=== PATIENT | female | born 1960 | race Caucasian/White ===

== ENCOUNTER → 2017-01-16 | Outpatient (CLI) | payer OTHER ==
[~2017-01-16] MED LIST: CALC-823 PO; CLCX100C PO; ESTR1TAB21 PO; FEXO1TAB49 PO; FLT05NA16 NS; HYDR-3714 PO; LEVO137T24 PO; METH500T7 PO; MULT-35 PO; ROPI1TAB2 PO
--- OUTSIDE RECORDS SUMMARY | 2017-01-16 10:52 | XMS REPORT | Continuity of Care Document ---
Author Author [facility] Organization [facility] Address Unknown Phone Unavailable Care Team Providers Care [place] Supervisor Name Role Phone Cedric Soni PCP [phone] Source Comments Some departments are not documenting in the electronic medical record. If you do not see the information that you expected, contact Release of Information in the Health Information Management department at [phone] for further assistance in locating additional records.[facility] Active Allergies and Adverse Reactions No Known Allergies Current Medications Prescription Sig. Disp. Refills Start End Date Status Date levothyroxine (SYNTHROID) Take 137 mcg by mouth Active 137 mcg tablet daily. montelukast (SINGULAIR) Take 10 mg by mouth at Active 10 mg tablet bedtime daily. estradiol/norethindrone Take 1 Tab by mouth Active acet(+) (ACTIVELLA) 1/0.5 daily. mg tablet fexofenadine-pseudoephedr Take 1 Tab by mouth Active ine (RAN-D 12 HOUR) daily. 60-120 mg tablet calcium carbonate Take 2 Tabs by mouth Active (CALCIUM 500) 500 mg daily. calcium (1,250 mg) chewable tablet traMADol (ULTRAM) 50 mg Take 50 mg by mouth every Active tablet 6 hours as needed. other medication 1 Dose daily as needed. Active Raspberry ketone 1 as needed. fluticasone (FLONASE) 50 Apply 2 Sprays to each Active mcg/actuation nasal spray nostril as directed at bedtime daily. celecoxib (CELEBREX) 200 Take 200 mg by mouth Active mg capsule daily as needed. methocarbamol (ROBAXIN) Take 750-1,500 mg by Active 750 mg tablet mouth three times daily as needed. Active Problems Not on file Social History Tobacco Use Types Packs/Day Years Used Date Never Assessed Smokeless Tobacco: Never Used Alcohol Use Drinks/Week oz/Week Comments Yes 2 Glasses of 2.2 wine 2 Standard drinks or equivalent Last Filed Vital Signs Vital Sign Reading Time Taken Blood Pressure 123/60 03/03/2013 1:15 PM CDT Pulse 67 03/03/2013 1:15 PM CDT Temperature 36.4 C (97.5 F) 03/03/2013 11:23 AM CDT Respiratory Rate - - Height 1.651 m (5' 5") 02/23/2013 2:00 PM CDT Weight 79.833 kg (176 lb) 02/23/2013 2:00 PM CDT Body Mass Index 29.29 02/23/2013 2:00 PM CDT Oxygen Saturation 98% 03/03/2013 1:15 PM CDT Plan of Care Health Maintenance Due Date Last Done Comments Physical (Comprehensive) 1965 Exam Pertussis Vaccine 1969 Tetanus Vaccine 1975 Cervical Cancer Screening 1979 Breast Cancer Screening 1998 Colorectal Cancer 2008 Screening Influenza Vaccine 07/25/2016 Results from Last 3 Months Not on file
--- NOTE | 2017-01-16 12:48 | Diagnostic Imaging Report ---
INDICATION: Postmenopausal, screening for osteoporosis. COMPARISON: 03/10/2014. DISCUSSION: Bone mineral density measurements of the lumbar spine and bilateral hips were performed on a [employer] DEXA scanner. Bone mineral density of the lumbar spine, L2-L4, measures 1.410 g per centimeter squared which correlates to a T score of 1.8, normal. No statistically significant interval change in bone mineral density measurements of the lumbar spine. Bone mineral density of the average bilateral hips is 1.119 g per centimeter squared which correlates to a T score of 0.9, normal. No statistically significant interval change in bone mineral density measurements of the bilateral hips. This scan is considered normal according to World Health Organization guidelines. IMPRESSION: 1. Normal bone mineralization. 2. No statistically significant interval change in bone mineral density measurements of the lumbar spine or bilateral hips. Dictated by: Dictated on workstation # [id number]
== END ==
LOC: RAD 10:49
PROVIDERS: ATTEND Physician Assistant
DX: M81.0 Age-related osteoporosis without current pathological fracture (principal)
CPT/HCPCS: 77080

== ENCOUNTER → 2017-01-24 | Outpatient (CLI) | payer OTHER ==
--- OUTSIDE RECORDS SUMMARY | 2017-01-24 11:36 | XMS REPORT | Continuity of Care Document ---
Author Author [facility] Organization [facility] Address Unknown Phone Unavailable Care Team Providers Care Supervisor [place] Name Role Phone Cedric Soni PCP [phone] Source Comments Some departments are not documenting in the electronic medical record. If you do not see the information that you expected, contact Release of Information in the Health Information Management department at [phone] for further assistance in locating additional records.[facility] Active Allergies and Adverse Reactions No [...]
--- NOTE | 2017-01-24 12:23 | Diagnostic Imaging Report ---
PROCEDURE: CT sinuses without contrast TECHNIQUE: Multiple contiguous axial images were obtained through the sinuses without the use of intravenous contrast. Coronal and sagittal reformations were then performed. INDICATION: Headache and facial pain with swelling. 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 There is mild rightward bowing of the nasal septum. Middle turbinates have been resected as well. There is however complete opacification of both frontal sinuses as well as anterior ethmoid air cells, greater on the left. There is enlargement of the anterior ethmoid air cell on the left with thinning of the associated lamina papyracea with bowing into the left orbit. There is no evidence of orbital fat, edema, or retrobulbar fluid collection. Globes are otherwise intact. IMPRESSION: Findings are compatible with extensive chronic bilateral frontal sinus disease with involvement of anterior ethmoid air cells. Expansion and cortical thinning of the left anterior ethmoid air cell may indicate possible mucocele. This bows into the left orbit without evidence of orbital fat inflammation. Dictated by: Dictated on workstation # [id number]
== END ==
LOC: RAD 11:33
PROVIDERS: ATTEND Otolaryngology Otolaryngology/Facial Plastic Surgery
DX: J01.90 Acute sinusitis, unspecified (principal)
CPT/HCPCS: 70486

== ENCOUNTER → 2017-02-14 | Outpatient (CLI) | payer OTHER ==
--- NOTE | 2017-02-14 16:53 | Diagnostic Imaging Report ---
EXAMINATION: Bilateral breast digital diagnostic mammogram with CAD. The current study was also evaluated with a Computer Aided Detection (CAD) system. INDICATION: Followup calcifications in the posterior slightly medial aspect of the left breast. COMPARISON: 08/19/2016. FINDINGS: The breasts are composed of heterogeneously dense parenchyma which may decrease mammographic sensitivity. Along the posterior slightly medial aspect of the left breast there are punctate calcifications with slight clustering seen. There is an adjacent curvilinear structure which may suggest vascular etiology of the calcifications. The calcifications appear minimally more prominent compared to prior exams. The right breast demonstrates benign-appearing calcifications and no developing mass. IMPRESSION: Minimally more prominent cluster of calcifications in the medial posterior aspect of the left breast that are still very subtle. These could be vascular. Six-month followup left breast mammogram is recommended for continued close observation. ACR BI-RADS Category 3: Probably benign findings. Result letter will be mailed to the patient. Note: At least 10% of breast cancer is not imaged by mammography. Dictated by: Dictated on workstation # [id number]
== END ==
LOC: RAD 08:44
PROVIDERS: ATTEND Obstetrics & Gynecology
DX: R92.8 Other abnormal and inconclusive findings on diagnostic imaging of breast (principal)
CPT/HCPCS: 77066

== ENCOUNTER → 2017-10-22 | Outpatient (CLI) | payer OTHER ==
--- NOTE | 2017-10-22 11:34 | Diagnostic Imaging Report ---
PROCEDURE: MRI lumbar spine. TECHNIQUE: Multiplanar, multisequence MRI of the lumbar spine was performed without contrast. INDICATION: History of arachnoiditis. COMPARISON: 04/24/2016 FINDINGS: Overall, there has been little significant interval change from the prior study. BONE MARROW: Unremarkable CONUS MEDULLARIS: Normal. There is some clumping of the distal roots which appears similar to the prior study. L5-S1: There is degenerative disc disease with disc space narrowing and loss of signal. There is mild broad-based posterior protrusion. There is spondylolysis with minimal grade I anterolisthesis similar to the prior study. There is mild facet arthropathy. There is minimal to mild foraminal narrowing bilaterally. L4-5: There is degenerative disc disease with disc space narrowing and loss of signal. There is broad-based posterior disc protrusion and mild facet arthropathy. Mild to moderate left foraminal narrowing appears similar to the prior study. L3-4: There is moderate anterolisthesis with degenerative disc disease. There is broad-based posterior disc protrusion and fairly severe facet arthropathy resulting in mild central narrowing, similar to the prior study. There is mild bilateral foraminal narrowing as well. L2-3: There is degenerative disc disease with disc space narrowing and loss of signal. There is moderate facet hypertrophic change. There is minimal annular bulge without significant central or foraminal narrowing. L1-2: Minimal facet arthropathy. ADDITIONAL FINDINGS: None IMPRESSION: 1. Multilevel degenerative disc disease and facet arthropathy with multiple levels of foraminal narrowing. There is some central narrowing at the L3/L4 level. The appearance overall appears similar to the prior exam. Please see above for detailed discussion by level. 2. Some clumping of the distal sacral nerve roots appears similar to the prior study. Dictated by: Dictated on workstation # [id number]
== END ==
LOC: RAD 09:30
PROVIDERS: ATTEND Obstetrics & Gynecology
DX: M48.061 Spinal stenosis, lumbar region without neurogenic claudication (principal); M51.36 Other intervertebral disc degeneration, lumbar region; M46.96 Unspecified inflammatory spondylopathy, lumbar region
CPT/HCPCS: 72148

== ENCOUNTER → 2018-02-27 | Outpatient (CLI) | payer BC, OTHER ==
--- NOTE | 2018-02-27 14:26 | Diagnostic Imaging Report ---
EXAMINATION: Digital mammogram bilateral screening. INDICATION: Screening. COMPARISON: This study was compared to the prior exam of 09/29/2017, 02/14/2017, 08/19/2016, and 01/24/2016. At this time, there are no current complaints. The current study was also evaluated with a Computer Aided Detection (CAD) system. FINDINGS: The fibroglandular tissue in both breasts is heterogeneously dense. This does limit the sensitivity of this exam. The previous study did show benign-appearing calcifications in the medial aspect of the left breast. Those calcifications do not seem to have changed significantly. I do suspect that they are benign. The overall appearance of the breasts is stable as well. There is no primary or secondary sign of malignancy identified. IMPRESSION: There is no evidence of malignancy. ACR BI-RADS Category 1: Negative. Result letter will be mailed to the patient. Note: At least 10% of breast cancer is not imaged by mammography. Dictated by: Dictated on workstation # [id number]
== END ==
LOC: RAD 09:38
PROVIDERS: ATTEND Obstetrics & Gynecology
DX: Z12.31 Encounter for screening mammogram for malignant neoplasm of breast (principal)
CPT/HCPCS: 77067

== ENCOUNTER → 2018-07-09 | Outpatient (CLI) | payer BC ==
--- NOTE | 2018-07-09 12:00 | Diagnostic Imaging Report ---
Indication: Neuropathy. Comparison is made with prior study 01/16/2017. Bone mineral analysis of the lumbar spine and both hips was performed. Bone mineral density of the lumbar spine L2-L4 is 1.340 with a T score of 1.2. This compares with 1.410 and 1.8 on prior. Bone mineral density left femoral neck 1.015 with T score -0.2. This compares with 1.044 and 0.0. Bone mineral density right femoral neck is 0.949 with T score -0.6. This compares with 0.981 and -0.4. Impression: Continued normal bone mineral density of the lumbar spine and bilateral hips. Dictated by: Dictated on workstation # [id number]
== END ==
LOC: RAD 08:56
PROVIDERS: ATTEND Anesthesiology Pain Medicine
DX: G62.9 Polyneuropathy, unspecified (principal)
CPT/HCPCS: 77080

== ENCOUNTER → 2019-03-26 | Outpatient (CLI) | payer BC ==
--- NOTE | 2019-03-29 12:35 | Diagnostic Imaging Report ---
INDICATION: Routine screening. COMPARISON: 02/27/2018 and 02/14/2017. TECHNIQUE: 2D and 3D bilateral screening mammography was performed with CAD. FINDINGS: Both breasts are heterogeneously dense, limiting the sensitivity of mammography. The intramammary lymph node in the upper-outer left breast is stable. No new mass or malignant-appearing microcalcifications are seen. There are benign calcifications bilaterally. The axillae are unremarkable. IMPRESSION: No mammographic features suspicious for malignancy are identified. ACR BI-RADS Category 2: Benign findings. Result letter will be mailed to the patient. Note: At least 10% of breast cancer is not imaged by mammography. Dictated by: Dictated on workstation # [id number]
== END ==
LOC: RAD 11:34
PROVIDERS: ATTEND Obstetrics & Gynecology
DX: Z12.31 Encounter for screening mammogram for malignant neoplasm of breast (principal)
CPT/HCPCS: 77067

== ENCOUNTER → 2020-01-24 | Outpatient (CLI) | payer BC ==
--- NOTE | 2020-01-24 16:00 | Diagnostic Imaging Report ---
PROCEDURE: MRI lumbar spine. TECHNIQUE: Multiplanar, multisequence MRI of the lumbar spine was performed without contrast. INDICATION: Chronic low back pain. History of surgery. COMPARISON: 10/22/2017 FINDINGS: The last well-formed disc space will be labeled L5-S1 for the purposes of this examination. There is grade I anterolisthesis at L3-L4 which is stable since the prior study. Vertebral body heights are preserved. No acute fracture is seen. There is disc height loss and decreased T2 signal at multiple levels, most notable at L2-L3, L3-L4, and L5-S1. The soft tissues about the lumbar spine are otherwise unremarkable. T12-L1: No significant disc bulge. No spinal canal or foraminal stenosis. L1-L2: Mild disc bulge with facet arthropathy. No spinal canal stenosis. Mild right foraminal stenosis. No left foraminal stenosis. L2-L3: Diffuse disc bulge with facet arthropathy and ligamentous infolding. Minimal spinal canal narrowing. Mild bilateral foraminal narrowing. L3-L4: Anterolisthesis. Right paracentral disc extrusion extending superiorly, superimposed on a diffuse disc bulge. Facet arthropathy. Effacement of the lateral recesses with moderate spinal canal stenosis. Moderate bilateral foraminal stenosis. L4-L5: Diffuse disc bulge. Small central disc protrusion extending inferiorly. Facet arthropathy. No spinal canal stenosis. Mild right and moderate left foraminal stenosis. L5-S1: Diffuse disc bulge with facet arthropathy. No spinal canal stenosis. Moderate bilateral foraminal stenosis. Overall findings appear mildly progressed compared to 2017. IMPRESSION: 1. Multilevel degenerative disc disease, as described above. Moderate spinal canal stenosis at L3-L4. Multilevel moderate foraminal stenosis. Dictated by: Dictated on workstation # [id number]
== END ==
LOC: RAD 15:17
PROVIDERS: ATTEND Nurse Practitioner Family
DX: Q07.9 Congenital malformation of nervous system, unspecified (principal); G89.29 Other chronic pain; E66.01 Morbid (severe) obesity due to excess calories; M51.27 Other intervertebral disc displacement, lumbosacral region; M48.07 Spinal stenosis, lumbosacral region; M51.36 Other intervertebral disc degeneration, lumbar region; M43.16 Spondylolisthesis, lumbar region
CPT/HCPCS: 72148

== ENCOUNTER → 2020-01-25 | Outpatient (CLI) | payer BC ==
--- NOTE | 2020-01-25 16:38 | Diagnostic Imaging Report ---
PROCEDURE: MRI right joint lower extremity without contrast. TECHNIQUE: Multiplanar, multisequence non contrast-enhanced MRI of the right lower extremity was accomplished. INDICATION: Right knee pain. COMPARISON: There are no prior studies available for comparison. FINDINGS: The sagittal proton-dense fat-saturated series reveals that there is an area of abnormal signal involving the posterior horn of the medial meniscus. This would be consistent with a tear. The inferior articular surface of the posterior horn and the midportion of the medial meniscus are also somewhat indistinct and I suspect that they are torn as well. The lateral meniscus is intact. The sagittal proton-dense fat-saturated series also shows that the anterior cruciate ligament is indistinct. I suspect the ACL is at least partially if not completely torn. The posterior cruciate ligament, the quadriceps and the infrapatellar tendons, the collateral ligaments, the biceps femoris tendon, and the iliotibial band are intact. There is no abnormal signal arising from the osseous structures to suggest bone edema or fracture. There is mild degenerative disease of the medial compartment of the knee joint and of the lateral aspect of the patellofemoral space. Chondromalacia patella, grade 1, is also seen. The lateral compartment is fairly well maintained. There is a small joint effusion present. There is no evidence for a Bartlett's cyst. IMPRESSION: 1. The midportion and the posterior horn of the medial meniscus are torn. The lateral meniscus is intact. 2. The indistinct appearance of the anterior cruciate ligament indicates that the ACL is at least partially if not completely torn. 3. The other major ligaments and tendons are intact. 4. There is no sign of an acute bony injury. 5. There is a small joint effusion present. Dictated by: Dictated on workstation # [id number]
== END ==
LOC: RAD 15:18
PROVIDERS: ATTEND Nurse Practitioner Family
DX: M23.221 Derangement of posterior horn of medial meniscus due to old tear or injury, right knee (principal); Q07.9 Congenital malformation of nervous system, unspecified; E66.09 Other obesity due to excess calories; M54.16 Radiculopathy, lumbar region
CPT/HCPCS: 73721

== ENCOUNTER 2020-04-25 13:12 | Outpatient (RCR) | payer BC | END 2020-04-27 | disposition home or self-care (01) | PROVIDERS: ATTEND Nurse Practitioner Family | DX: S83.511A Sprain of anterior cruciate ligament of right knee, initial encounter (principal); M54.16 Radiculopathy, lumbar region; X58.XXXA Exposure to other specified factors, initial encounter ==

== ENCOUNTER → 2020-07-14 | Outpatient (CLI) | payer BC ==
--- NOTE | 2020-07-14 12:53 | Diagnostic Imaging Report ---
INDICATION: Routine screening. Comparison is made with prior mammogram 03/26/2019 and 02/27/2018. 2-D and 3-D bilateral screening mammography was performed with CAD. Both breasts are heterogeneously dense, limiting the sensitivity of mammography. Benign nodule outer left breast is stable. No new mass or malignant-appearing microcalcifications are identified. Axillae are unremarkable. IMPRESSION: BI-RADS Category 2 No mammographic features suspicious for malignancy are identified. ACR BI-RADS Category 2: Benign findings. Result letter will be mailed to the patient. Note: At least 10% of breast cancer is not imaged by mammography. Dictated by: Dictated on workstation # [id number]
== END ==
LOC: RAD 11:00
PROVIDERS: ATTEND Obstetrics & Gynecology
DX: Z12.31 Encounter for screening mammogram for malignant neoplasm of breast (principal)
CPT/HCPCS: 77063; 77067

== ENCOUNTER 2020-07-26 13:53 | Outpatient (RCR) | payer BC | END 2020-07-31 | disposition home or self-care (01) | PROVIDERS: ATTEND Nurse Practitioner Family | DX: S83.511A Sprain of anterior cruciate ligament of right knee, initial encounter (principal); M54.16 Radiculopathy, lumbar region; T78.40XA Allergy, unspecified, initial encounter; Z87.828 Personal history of other (healed) physical injury and trauma; Z90.710 Acquired absence of both cervix and uterus; Z87.81 Personal history of (healed) traumatic fracture ==

== ENCOUNTER 2020-10-05 13:07 | Outpatient (RCR) | payer BC | END 2020-11-23 | disposition home or self-care (01) | PROVIDERS: ATTEND Nurse Practitioner Family | DX: S83.511A Sprain of anterior cruciate ligament of right knee, initial encounter (principal); M54.16 Radiculopathy, lumbar region; Z87.828 Personal history of other (healed) physical injury and trauma; Z90.710 Acquired absence of both cervix and uterus; Z87.81 Personal history of (healed) traumatic fracture ==

== ENCOUNTER 2021-06-01 13:03 | Outpatient (RCR) | payer BC | END 2021-06-13 | disposition home or self-care (01) | PROVIDERS: ATTEND Family Medicine | DX: S43.409D Unspecified sprain of unspecified shoulder joint, subsequent encounter (principal); M75.21 Bicipital tendinitis, right shoulder; Q07.9 Congenital malformation of nervous system, unspecified; M54.5 Low back pain; G89.29 Other chronic pain; E66.09 Other obesity due to excess calories; M25.561 Pain in right knee; Z79.899 Other long term (current) drug therapy ==

== ENCOUNTER → 2021-06-11 | Outpatient (CLI) | payer BC ==
--- NOTE | 2021-06-11 16:16 | Diagnostic Imaging Report ---
EXAMINATION: Magnetic resonance imaging of the right shoulder without contrast. DATE: June 11, 2021. COMPARISON: None. HISTORY: 61-year-old female, right shoulder pain. TECHNIQUE: Magnetic Resonance Imaging sequences were performed of the shoulder without contrast. FINDINGS: ROTATOR CUFF, LIGAMENTS, TENDONS, AND MUSCLES: There is supraspinatus tendinopathy. There is a 4 mm wide near full thickness articular sided tear of the anterior aspect of the supraspinatus and a more posteriorly located 6 mm tear near the supraspinatus infraspinatus junction which appears to be a 50% partial thickness articular sided tear. The more posterior aspects of the infraspinatus tendon are intact. The teres minor tendon is intact. There is subscapularis tendinopathy. There is normal rotator cuff muscle bulk and signal. LONG HEAD OF BICEPS: The biceps labral attachment and long head of the biceps tendon is intact. The long head of the biceps tendon is normally positioned within the bicipital groove. GLENOHUMERAL JOINT: The humeral head is well positioned relative to the glenoid. The anterior and posterior labrum are grossly intact. There is limited evaluation of the superior labrum on non-arthrogram evaluation. There is no identified paralabral cyst. The articular cartilage is grossly intact. There is no joint effusion. ACROMIOCLAVICULAR JOINT: The acromioclavicular joint is normally aligned. The coracoclavicular and coracoacromial ligaments are intact. There are very mild acromioclavicular degenerative changes without undersurface osteophyte. BONE: The bones all have normal configuration. The bone marrow signal is within normal limits. Specifically, negative for fracture, osteomyelitis, osteonecrosis, or marrow replacing process. BURSAE AND SOFT TISSUES: The bursae and soft tissue surrounding the shoulder are unremarkable. IMPRESSION: 1. Partial width tears involving the supraspinatus tendon and supraspinatus infraspinatus junction with the more posteriorly located tear being near full-thickness. No tendon retraction or muscle atrophy. Subscapularis tendinopathy. 2. Intact proximal long head of the biceps tendon. 3. Very mild acromioclavicular degenerative changes without undersurface osteophyte. 4. No acute fracture, bone contusion, or evidence of osteonecrosis. Dictated by: Dictated on workstation # [id number]
== END ==
LOC: RAD 13:08
PROVIDERS: ATTEND Family Medicine
DX: S46.811A Strain of other muscles, fascia and tendons at shoulder and upper arm level, right arm, initial encounter (principal); M19.011 Primary osteoarthritis, right shoulder
CPT/HCPCS: 73221

== ENCOUNTER → 2021-07-06 | Outpatient (CLI) | payer BC | LOC: LABNPT 05:58 | PROVIDERS: ATTEND Orthopaedic Surgery | DX: Z01.812 Encounter for preprocedural laboratory examination (principal); Z20.822 Contact with and (suspected) exposure to COVID-19 | CPT/HCPCS: 87635 ==

== ENCOUNTER 2021-07-20 11:47 | Outpatient (CLI) | payer BC ==
[~2021-07-20] VITALS: Ht 165.1 cm; Wt 71.2 kg
[2021-07-20 11:32] VITALS: BP 152/78
[2021-07-20] MEDS ORDERED: ACETAMINOPHEN 500 MG TAB (TYLENOL) PO PRN (12:00)
[2021-07-20] MEDS ORDERED: CASIRIVIMAB/IMDEVIMAB 1,200 MG in NS (IVPB) 250 ML IV ONE (12:00)
[2021-07-20] MEDS ORDERED: ONDANSETRON 4 MG/2 ML (SDV) Z0FRAN IV PRN (12:00)
[2021-07-20] MEDS ORDERED: diphenhydrAMINE 50 MG/ML INJ (BENADRYL) IV PRN (12:00)
[2021-07-20] MEDS ORDERED: EPINEPHrine INJECTION 1 MG/ML AMP IM PRN (12:00)
[2021-07-20 12:59] VITALS: BP_SYST 126; BP_SYST 146; BP_DIAS 86; BP_DIAS 89
== END 2021-07-20 13:35 | disposition home or self-care (01) ==
LOC: INFUSION 11:47
PROVIDERS: ATTEND Physician Assistant
DX: Z23 Encounter for immunization (principal); U07.1 COVID-19

== ENCOUNTER → 2021-10-03 | Outpatient (CLI) | payer BC ==
--- NOTE | 2021-10-03 17:16 | Diagnostic Imaging Report ---
INDICATION: Fell one week ago. Pain in the middle finger region. EXAMINATION: Left hand 10/03/2021 FINDINGS: 3 views of the hand. There are no fractures or dislocations. Joint spaces preserved. Soft tissues unremarkable. IMPRESSION: 1. No acute osseous abnormality. Dictated on workstation # [id number]
== END ==
LOC: RAD 14:24
PROVIDERS: ATTEND Family Medicine
DX: S43.402D Unspecified sprain of left shoulder joint, subsequent encounter (principal); M75.21 Bicipital tendinitis, right shoulder; Q07.9 Congenital malformation of nervous system, unspecified; M54.50 Low back pain, unspecified; G89.29 Other chronic pain; E66.09 Other obesity due to excess calories; M25.561 Pain in right knee; Z79.899 Other long term (current) drug therapy; W18.39XD Other fall on same level, subsequent encounter
CPT/HCPCS: 73130

== ENCOUNTER → 2021-11-08 | Outpatient (CLI) | payer BC ==
--- NOTE | 2021-11-09 10:06 | Diagnostic Imaging Report ---
INDICATION: Routine screening. Comparison is made with prior mammogram 07/14/2020 and 03/26/2019. 2-D and 3-D bilateral screening mammography was performed with CAD. Both breasts are heterogeneously dense, limiting the sensitivity of mammography. Benign nodule in the outer left breast is stable. A benign nodule in the far posterior right breast appears stable. No spiculated mass or malignant-appearing microcalcifications are seen. Axillae are unremarkable. IMPRESSION: BI-RADS Category 2 No mammographic features suspicious for malignancy are identified. ACR BI-RADS Category 2: Benign findings. Result letter will be mailed to the patient. Note: At least 10% of breast cancer is not imaged by mammography. Dictated by: Dictated on workstation # [id number]
== END ==
LOC: RAD 15:37
PROVIDERS: ATTEND Obstetrics & Gynecology
DX: Z12.31 Encounter for screening mammogram for malignant neoplasm of breast (principal)
CPT/HCPCS: 77063; 77067

== ENCOUNTER → 2021-11-12 | Outpatient (CLI) | payer BC ==
--- NOTE | 2021-11-12 11:04 | Diagnostic Imaging Report ---
CLINICAL INDICATION: Patient has neck pain with right arm radiculopathy. Exam: MRI of the cervical spine performed without IV contrast. Sequences include sagittal T1, sagittal T2, sagittal stir, axial gradient echo sequence, and axial T2. Comparison: MRI of the cervical spine without contrast dated 09/30/2013. Findings: There is no acute cervical spine fracture or dislocation. There is no significant abnormal cervical vertebral body signal. Limited visualization of posterior fossa is unremarkable. There are areas of slight tortuosity of the cervical cord due to cervical spine degenerative disease. Cervical spine cord has no abnormal signal. There is no significant paraspinal soft tissue abnormality. Stable reversal of the cervical lordosis centered at the C5-C6 level. There are degenerative spurs and facet arthropathy. C1-C2: There are degenerative spurs involving the atlantoodontoid interval anteriorly. There is no significant central canal narrowing. C2-C3: There is moderate left facet arthropathy and mild right facet arthropathy which has progressed. There is no significant central spinal canal or neural foramen narrowing. C3-C4: There is moderate left facet arthropathy and mild right facet arthropathy again noted. There is ligament flavum buckling which has slightly progressed. There is mild central canal stenosis and no significant neural foramen narrowing which is not significantly changed. C4-C5: There are diffuse disk bulges with increased size of the right uncinate spurs. There is moderate loss of disk space height. There is moderate right neural foramen narrowing which has progressed. There is no significant left neural foramen narrowing. There is moderate central canal stenosis which has minimally progressed. C5-C6: Again seen diffuse disk bulge and moderate loss of disk space height. Stable moderate left neural foramen narrowing and mild right neural foramen narrowing. There is stable moderate central canal stenosis. C6-C7: There is a diffuse disk bulge with moderate loss of disk space height with mild central canal stenosis. There is mild to moderate right neural foramen narrowing and moderate left neural foramen narrowing which has minimally progressed. C7-T1: There is interval development of a small disk extrusion/herniation in the right subarticular region causing moderate right neural foramen narrowing. There is mild left neural foramen narrowing. There is no significant central canal narrowing. IMPRESSION: 1: There is overall slight progression of multilevel cervical spine degenerative disease which is described in detail above. 2: There is interval development of a C7-T1 disk extrusion/herniation of right foraminal region causing moderate right neural foramen narrowing. Dictated by: Dictated on workstation # [id number]
== END ==
LOC: RAD 09:30
PROVIDERS: ATTEND Orthopaedic Surgery
DX: M47.22 Other spondylosis with radiculopathy, cervical region (principal); M50.123 Cervical disc disorder at C6-C7 level with radiculopathy; M50.23 Other cervical disc displacement, cervicothoracic region; M48.02 Spinal stenosis, cervical region; M48.03 Spinal stenosis, cervicothoracic region
CPT/HCPCS: 72141

== ENCOUNTER 2021-11-21 13:46 | Outpatient (RCR) | payer BC | END 2021-11-23 | disposition home or self-care (01) | PROVIDERS: ATTEND Nurse Practitioner Family | DX: Z98.890 Other specified postprocedural states (principal); Z96.611 Presence of right artificial shoulder joint ==

== ENCOUNTER → 2021-12-18 | Outpatient (CLI) | payer BC ==
--- NOTE | 2021-12-18 17:12 | Diagnostic Imaging Report ---
INDICATION: 61-year-old female, postmenopausal. Screening for osteoporosis. COMPARISON: July 09, 2018. FINDINGS: AP Spine L1-L4: [BMD (g/cm2): 1.422] [T-Score: 1.8] [Z-Score: 3.2] [BMD Previous: 1.340] [BMD % Change: 6.1] LT Hip Neck: [BMD (g/cm2): 0.926] [T-Score: -0.8] [Z-Score: 0.5] LT Hip Total: [BMD (g/cm2):1.041] [T-Score:0.3] [Z-Score: 1.3] [BMD Previous: 1.139] [BMD % Change: -8.6] RT Hip Neck: [BMD (g/cm2):0.882] [T-Score:-1.1] [Z-Score:0.2] RT Hip Total: [BMD (g/cm2):0.983] [T-score:-0.2] [Z-Score:0.8] [BMD Previous:1.045] [BMD % Change:-5.9] *Indicates significant change from prior examination based on 95% confidence level. World Health Organization criteria for BMD interpretation classify patients as Normal (T-score at or above -1.0), Osteopenic (T-score between -1.0 and -2.5) or Osteoporotic (T-score at or below -2.5). LIMITATIONS AND MODIFICATION: None. FRACTURE RISK (FRAX SCORE): The ten year probability of (%): Major Osteoporotic Fracture: [8.1] Hip Fracture: [0.6] IMPRESSION: 1. Normal bone mineral density. 2. No significant change in bone mineral density since prior examination. 3. See below National Osteoporosis Foundation guidelines on when to potentially initiate pharmacologic therapy. Based on the National Osteoporosis Foundation Guidelines, pharmacologic treatment should be initiated in any of the following, unless clinical conditions suggest otherwise: * Any patient with prior fragility fracture of the hip or vertebrae. A spine fracture indicates 5X risk for subsequent spine fracture and 2X risk for subsequent hip fracture. * Osteoporosis (T-score <-2.5). * Postmenopausal women and men age 50 and older with low bone mass/osteopenia (T-score between -1.0 and -2.5) by DXA and 10-year major osteoporotic fracture greater than 20% or a 10-year probability of hip fracture greater than 3%. These fracture risks are supplied above in the FRAX score, if applicable. * Clinician judgement and/or patient preferences may indicate treatment for people with 10-year fracture probabilities above or below these levels. Dictated by: Dictated on workstation # [id number]
== END ==
LOC: RAD 12:30
PROVIDERS: ATTEND Internal Medicine Endocrinology, Diabetes & Metabolism
DX: Z13.820 Encounter for screening for osteoporosis (principal); E03.2 Hypothyroidism due to medicaments and other exogenous substances; Z78.0 Asymptomatic menopausal state
CPT/HCPCS: 77080

== ENCOUNTER 2021-12-21 13:05 | Outpatient (RCR) | payer BC | END 2021-12-24 | disposition home or self-care (01) | PROVIDERS: ATTEND Nurse Practitioner Family | DX: Z98.890 Other specified postprocedural states (principal); Z96.611 Presence of right artificial shoulder joint ==

== ENCOUNTER → 2022-01-21 | Outpatient (RCR) | payer BC | END | disposition home or self-care (01) | PROVIDERS: ATTEND Nurse Practitioner Family | DX: Z98.890 Other specified postprocedural states (principal); Z96.611 Presence of right artificial shoulder joint ==

== ENCOUNTER 2022-01-25 09:20 | Outpatient (RCR) | payer BC | END 2022-01-25 09:51 | disposition home or self-care (01) | PROVIDERS: ATTEND Nurse Practitioner Family | DX: Z98.890 Other specified postprocedural states (principal); Z96.611 Presence of right artificial shoulder joint ==

== ENCOUNTER 2022-06-20 14:31 | Outpatient (RCR) | payer BC | END 2022-06-23 | disposition home or self-care (01) | DX: M54.12 Radiculopathy, cervical region (principal) ==

== ENCOUNTER 2022-07-03 11:20 | Outpatient (RCR) | payer BC | END 2022-07-24 | disposition home or self-care (01) | DX: M54.12 Radiculopathy, cervical region (principal) ==

== ENCOUNTER 2022-08-05 11:21 | Outpatient (CLI) | payer BC ==
[~2022-08-05] VITALS: Ht 165.1 cm; Wt 70.5 kg
[2022-08-05 11:25] VITALS: BP 136/76
[2022-08-05] MEDS ORDERED: BEBTELOVIMAB 175 MG/2 ML VIAL IV ONE (11:30)
[2022-08-05] MEDS ORDERED: diphenhydrAMINE 50 MG/ML INJ (BENADRYL) IV PRN (11:45)
[2022-08-05] MEDS ORDERED: ACETAMINOPHEN 500 MG TAB (TYLENOL) PO PRN (11:45)
[2022-08-05] MEDS ORDERED: EPINEPHrine INJECTION 1 MG/ML AMP IM PRN (11:45)
[2022-08-05] MEDS ORDERED: ONDANSETRON 4 MG/2 ML (SDV) Z0FRAN IV PRN (11:45)
[2022-08-05 12:35] VITALS: BP 105/69
== END 2022-08-05 12:45 | disposition home or self-care (01) ==
LOC: INFUSION 11:21
PROVIDERS: ATTEND Registered Nurse Critical Care Medicine
DX: U07.1 COVID-19 (principal)

== ENCOUNTER → 2022-11-11 | Outpatient (CLI) | payer BC ==
--- NOTE | 2022-11-11 14:00 | Diagnostic Imaging Report ---
INDICATION: Routine screening. COMPARISON: 11/08/2021 and 07/14/2020. TECHNIQUE: 2D and 3D bilateral screening mammography was performed with CAD. FINDINGS: Both breasts are heterogeneously dense, limiting the sensitivity of mammography. The parenchymal pattern is stable. A benign nodule in the upper outer left breast is stable. There are benign calcifications. No new mass or malignant-appearing microcalcifications are seen. The axillae are unremarkable. IMPRESSION: No mammographic features suspicious for malignancy are identified. ACR BI-RADS Category 2: Benign findings. Result letter will be mailed to the patient. Note: At least 10% of breast cancer is not imaged by mammography. Dictated by: Dictated on workstation # [id number]
== END ==
LOC: RAD 11:30
PROVIDERS: ATTEND Family Medicine
DX: Z12.31 Encounter for screening mammogram for malignant neoplasm of breast (principal)
CPT/HCPCS: 77063; 77067

== ENCOUNTER 2023-03-14 11:30 | Outpatient (RCR) | payer BC | END 2023-03-23 | disposition home or self-care (01) | PROVIDERS: ATTEND Orthopaedic Surgery | DX: S76.312D Strain of muscle, fascia and tendon of the posterior muscle group at thigh level, left thigh, subsequent encounter (principal) ==

== ENCOUNTER 2023-04-01 11:23 | Outpatient (RCR) | payer BC | END 2023-04-23 | disposition home or self-care (01) | PROVIDERS: ATTEND Orthopaedic Surgery | DX: S76.312D Strain of muscle, fascia and tendon of the posterior muscle group at thigh level, left thigh, subsequent encounter (principal); X58.XXXD Exposure to other specified factors, subsequent encounter ==